=== PATIENT | female | born 1975 | race American Indian/Alaskan Native ===

== ENCOUNTER 2017-05-21 14:33 | Emergency (ER) | payer MEDICARE, OTHER ==
--- NOTE | 2017-05-21 15:51 | C.PDOC ---
History Of Present Illness Patient BIBA for evaluation of anxiety/panick attack. Patient states she has been under stress, and in the past several weeks her anxiety has been worsening. Today she felt very nervous and like her heart was racing. Patient admits to history of anxiety, but does not have psychiatrist and is not currently taking psychiatric medications. PMhx of seizure disorder, HIV on HAART, states she has normal CD4 count. She has no current physical complaints , and denies SI/HI. Time Seen by Provider: 05/21/17 14:45 Chief Complaint (Nursing): Anxiety History Per: Patient, Family (friend at bedside) History/Exam Limitations: no limitations Onset/Duration Of Symptoms: Persistent (x 3 weeks) Current Symptoms Are (Timing): Still Present Severity: Moderate Associated Symptoms: Anxiety. denies: Depression, Suicidal Thoughts, Suicidal Plan Past Medical History Reviewed: Historical Data, Nursing Documentation, Vital Signs - Medical History PMH: Anxiety, HIV, Seizures Family History: States: No Known Family Hx - Social History Hx Alcohol Use: Yes Hx Substance Use: Yes - Immunization History Hx Tetanus Toxoid Vaccination: Yes Hx Influenza Vaccination: Yes Hx Pneumococcal Vaccination: Yes Review Of Systems Except As Marked, All Systems Reviewed And Found Negative. Constitutional: Negative for: Fever, Chills Cardiovascular: Positive for: Other (heart racing ). Negative for: Chest Pain, Palpitations Respiratory: Negative for: Cough, Shortness of Breath Gastrointestinal: Negative for: Nausea, Vomiting, Abdominal Pain, Diarrhea Psych: Positive for: Anxiety. Negative for: Depression, Psychosis, Suicidal ideation Physical Exam - Physical Exam Appears: Well, Non-toxic, In Acute Distress (in mild to moderate distress, anxious appearing ) Skin: Normal Color, Warm, Dry Eye(s): bilateral: Normal Inspection Oral Mucosa: Moist Cardiovascular: Rhythm Regular (mildly tachycardic ) Respiratory: Normal Breath Sounds, No Rales, No Rhonchi, No Wheezing Gastrointestinal/Abdominal: Normal Exam, Bowel Sounds, Soft, No Tenderness Extremity: Bilateral: Atraumatic, Normal Color And Temperature, Normal ROM Neurological/Psych: Oriented x3 ED Course And Treatment O2 Sat by Pulse Oximetry: 99 (RA) Pulse Ox Interpretation: Normal Progress Note: Patient given PO Xanax. On reassessment, she states she feels much better and is comfortable being discharged home. She denies SI/HI, and has been given follow up information for [facility] as well as Rx for Xanax. She understands she should return to ED if symptoms worsen. Disposition Counseled Patient/Family Regarding: Diagnosis, Need For Followup, Rx Given - Disposition Referrals: Kimber Mtz MD [Medical Doctor] - Disposition: HOME/ ROUTINE Disposition Time: 15:50 Condition: STABLE Additional Instructions: FOLLOW UP WITH [facility] USE MEDICATIONS NEEDED RETURN TO ER IF YOUR SYMPTOMS WORSEN Prescriptions: ALPRAZolam [Xanax] 0.25 mg PO Q6 PRN #15 tab PRN Reason: Anxiety Instructions: Anxiety (ED) Forms: [employer] (Pashto) Print Language: KOSOVAN - POA Present On Arrival: None - Clinical Impression Clinical Impression: Anxiety
[2017-05-21 16:02] VITALS: TEMP 97.9
[2017-05-21 16:03] VITALS: BP 131/87; PULSE 90; RESP 16
[2017-05-21 16:08] VITALS: O2SAT 99
== END 2017-05-21 16:04 | disposition home or self-care (01) ==
LOC: C.ER 14:33
DX: F41.9 Anxiety disorder, unspecified (principal)

== ENCOUNTER 2017-10-31 11:50 | Emergency (ER) | payer MEDICARE, OTHER ==
[2017-10-31 11:58] VITALS: BP 134/86; PULSE 86; RESP 18; TEMP 98.6; O2SAT 100
--- NOTE | 2017-10-31 12:09 | C.PDOC ---
History Of Present Illness Patient reports she was having a disagreement with her neighbor when they called the police. Patient escorted to the ER by the police for evaluation. She currently denies any suicidal or homicidal ideation, hallucinations. She also denies any pain and offers no medical complaints. Time Seen by Provider: 10/31/17 12:05 Chief Complaint (Nursing): Psychiatric Evaluation History Per: Patient History/Exam Limitations: no limitations Associated Symptoms: denies: Suicidal Thoughts, Suicidal Plan Past Medical History Reviewed: Historical Data, Nursing Documentation, Vital Signs Vital Signs: Last Vital Signs Temp 98.6 F 10/31/17 11:55 Pulse 86 10/31/17 11:55 Resp 18 10/31/17 11:55 BP 134/86 10/31/17 11:55 Pulse Ox 100 10/31/17 12:43 - Medical History PMH: Anxiety, HIV, Seizures Family History: States: No Known Family Hx - Social History Hx Alcohol Use: Yes Hx Substance Use: Yes - Immunization History Hx Tetanus Toxoid Vaccination: Yes Hx Influenza Vaccination: Yes Hx Pneumococcal Vaccination: Yes Review Of Systems Except As Marked, All Systems Reviewed And Found Negative. Constitutional: Negative for: Fever Cardiovascular: Negative for: Chest Pain Physical Exam - Physical Exam Additional Physical Exam Comments: Constitutional: No acute distress. Head: Normocephalic. Atraumatic. Eyes: PERRL. ENT: Moist mucous membranes. Neck: Supple. Cardiovascular: Regular rate. Radial pulse 2+ bilaterally. Chest: No tenderness. Respiratory: Clear to auscultation bilaterally. GI: Soft. Nontender. Nondistended. Back: No CVA tenderness. Musculoskeletal: No tenderness or swelling of extremities. Skin: No rash. Neurologic: Alert, no focal deficit. ED Course And Treatment O2 Sat by Pulse Oximetry: 100 (RA) Pulse Ox Interpretation: Normal Disposition - Disposition Disposition: HOME/ ROUTINE Disposition Time: 12:09 Condition: STABLE Forms: [employer] (Danish) - Clinical Impression Clinical Impression: No complaints - Scribe Statement The provider has reviewed the documentation as recorded by the Scribe (Zaira Isaac) Provider Attestation: All medical record entries made by the Scribe were at my direction and personally dictated by me. I have reviewed the chart and agree that the record accurately reflects my personal performance of the history, physical exam, medical decision making, and the department course for this patient. I have also personally directed, reviewed, and agree with the discharge instructions and disposition.
== END 2017-10-31 12:26 | disposition home or self-care (01) ==
LOC: C.ER 11:50
DX: Z04.8 Encounter for examination and observation for other specified reasons (principal)

== ENCOUNTER 2018-06-07 02:13 | Emergency (ER) | payer MEDICARE, OTHER ==
--- NOTE | 2018-06-07 02:34 | C.PDOC ---
History Of Present Illness 43 year old female presents to the ED c/o mid epigastric abdominal pain that started tonight [employer]. Patient states her pain is dull, aching. Patient denies fever, chills, nausea, diarrhea, back pain, rash, recent travel, sick contacts. Time Seen by Provider: 06/07/18 02:34 Chief Complaint (Nursing): Abdominal Pain History Per: Patient History/Exam Limitations: no limitations Onset/Duration Of Symptoms: Hrs Current Symptoms Are (Timing): Still Present Location Of Pain/Discomfort: Epigastric Quality Of Discomfort: Dull, Aching Associated Symptoms: denies: Nausea, Vomiting, Diarrhea, Urinary Symptoms Alleviating Factors: None Recent travel outside of the [place]: No Additional History Per: Patient Abnormal Vaginal Bleeding: No Past Medical History Reviewed: Historical Data, Nursing Documentation, Vital Signs - Medical History PMH: Anxiety, HIV, Seizures Surgical History: No Surg Hx Family History: States: Unknown Family Hx - Social History Hx Alcohol Use: Yes Hx Substance Use: Yes - Immunization History Hx Tetanus Toxoid Vaccination: Yes Hx Influenza Vaccination: Yes Hx Pneumococcal Vaccination: Yes Review Of Systems Constitutional: Negative for: Fever, Chills Cardiovascular: Negative for: Chest Pain Respiratory: Negative for: Cough, Shortness of Breath Gastrointestinal: Positive for: Abdominal Pain. Negative for: Nausea, Vomiting, Diarrhea Skin: Negative for: Rash Neurological: Negative for: Weakness, Numbness, Headache Physical Exam - Physical Exam Appears: Non-toxic, No Acute Distress Skin: Warm, Dry Head: Normacephalic Eye(s): bilateral: Normal Inspection Neck: Supple Chest: Symmetrical Cardiovascular: Rhythm Regular Respiratory: No Rales, No Rhonchi, No Wheezing Gastrointestinal/Abdominal: Soft, Tenderness (mid epigastric), No Guarding, No Rebound Back: No CVA Tenderness Extremity: Bilateral: Atraumatic, Normal Color And Temperature, Normal ROM Neurological/Psych: Oriented x3, Normal Speech, Normal Cognition Gait: Steady ED Course And Treatment - Laboratory Results Result Diagrams: 06/07/18 03:01 06/07/18 03:01 O2 Sat by Pulse Oximetry: 97 (On RA) Pulse Ox Interpretation: Normal Progress Note: Plna: - Labs. - Pepcod 20 mg IVP. - IV fluids. - Zofran 4 mg IVP. - UA Reevaluation Time: 05:00 Reassessment Condition: Improved Disposition Counseled Patient/Family Regarding: Studies Performed, Diagnosis, Need For Followup, Rx Given - Disposition Referrals: Kimber Mtz MD [Medical Doctor] - Disposition Time: 02:34 Condition: FAIR Additional Instructions: Please return if symptoms recur Prescriptions: Ondansetron ODT [Zofran ODT] 1 odt PO BID PRN #6 odt PRN Reason: Nausea/Vomiting Instructions: Nausea and Vomiting, Adult (DC) Forms: [employer] (Moroccan) - Clinical Impression Clinical Impression: Abdominal pain, Nausea, Vomiting - Scribe Statement The provider has reviewed the documentation as recorded by the Scribe Lázaro Martin All medical record entries made by the Scribe were at my direction and personally dictated by me. I have reviewed the chart and agree that the record accurately reflects my personal performance of the history, physical exam, medical decision making, and the department course for this patient. I have also personally directed, reviewed, and agree with the discharge instructions and disposition.
[2018-06-07] MEDS ORDERED: Sodium Chloride 0.9% 1,000 ML IV ONE (02:38)
[2018-06-07 02:41] VITALS: O2SAT 97
[2018-06-07 03:09] LABS: PROTHROMBIN TIME 10.7 SECONDS (9.7-12.2)
[2018-06-07 03:13] LABS: BASO % 0.3 % (0.0-2.0); EOS # 0.1 K/uL (0.0-0.7); EOS % 1.3 % (0.0-4.0); HEMOGLOBIN 13.4 g/dL (11.0-16.0); LYMPH # 3.1 K/uL (1.0-4.3); LYMPH % 31.5 % (20.0-40.0); MEAN CELL VOLUME 90.8 fL (81.0-99.0); MEAN CORPUSCULAR HEMOGLOBIN 30.7 pg (27.0-31.0); MEAN CORPUSCULAR HGB CONC 33.8 g/dL (33.0-37.0); MEAN PLATELET VOLUME 8.4 fL (7.2-11.7); MONO # 0.4 K/uL (0.0-0.8); MONO % 4.2 % (0.0-10.0); NEUT # 6.1 K/uL (1.8-7.0); NEUT % 62.7 % (50.0-75.0); NRBC % 0.1 % (0.0-2.0); RBC 4.35 Mil/uL (3.80-5.20); RED CELL DISTRIBUTION WIDTH 15.6 % (11.5-14.5); WHITE BLOOD COUNT 9.7 K/uL (4.8-10.8)
[2018-06-07 03:14] LABS: ALB/GLOB RATIO 1.3 (1.0-2.1); ALBUMIN 4.5 g/dL (3.5-5.0); ALT/SGPT 12 U/L (9-52); AST/SGOT 29 U/L (14-36); BLOOD UREA NITROGEN 16 mg/dL (7-17); CALCIUM 9.3 mg/dl (8.6-10.4); GFR NON-AFRICAN AMERICAN > 60; LIPASE 33 U/L (23-300)
[2018-06-07 05:34] VITALS: BP 128/78; PULSE 78; RESP 16; TEMP 98
== END 2018-06-07 04:55 | disposition home or self-care (01) ==
LOC: C.ER 02:13
DX: R10.13 Epigastric pain (principal); R11.2 Nausea with vomiting, unspecified
CPT/HCPCS: 80053; 83690; 85025; 85610; 85730; 96374; 96375; 99285; J2405; J7030